=== PATIENT | male | born 1975 | race Caucasian/White ===

== ENCOUNTER 2018-01-13 07:35 | Emergency (ER) | payer SELFPAY ==
[2018-01-13] MEDS ORDERED: TRAMADOL HCL 50 MG TAB ONE (08:03)
[2018-01-13] MEDS ORDERED: LISINOPRIL 20 MG TAB ONE (08:03)
[2018-01-13 08:39] LABS: MPV 8.9 fL (7.6-11.3)
[2018-01-13 08:53] LABS: Albumin 3.7 g/dL (3.4-5.0); Bilirubin Total 0.3 mg/dL (0.2-1.0); Potassium 3.6 mmol/L (3.5-5.1); Protein, Total 7.3 g/dL (6.4-8.2)
[2018-01-13] MEDS ORDERED: cloNIDine HCl 0.1 MG TAB ONE (09:07)
--- NOTE | 2018-01-13 09:40 | EDPHYS ---
Physician Documentation [facility] Name: Herberth Cole Jr Age: 42 yrs Sex: Male : 1975 Arrival Date: 01/13/2018 Time: 07:39 Bed 7 Private MD: None, None ED Physician Larry King HPI: 01/13 07:42 This 42 yrs old Male presents to ER via Unassigned with complaints of kav Headache. 07:53 The patient complains of pain to the top of head and forehead. The patient describes kav the headache as aching, a pressure. Onset: The symptoms/episode began/occurred acutely, just prior to arrival. Associated signs and symptoms: Pertinent positives: sinus congestion. Severity of symptoms: At its worst the pain was moderate, this morning, "similar to past headaches", a " 5" out of "10". Headache History: The patient has had previous headaches and this one is similar to previous episodes. The patient has experienced similar episodes in the past, several times. The patient has not recently seen a physician. patient c/o headache, cough, congestion and blurred vision. 08:00 He reports that he "...used to take blood pressure medications but quit taking it kav because it wasn't working". BP 200/120 on arrival. 08:00 1 ppd smoker and also uses smokeless tobacco daily. kav Historical: - Allergies: 08:04 No Known Allergies; iw - Home Meds: 08:04 None [Active]; iw - PMHx: 08:04 Hypertension; iw - PSHx: 08:04 None; iw - Immunization history:: Adult Immunizations not up to date. - Social history:: Smoking status: Patient uses tobacco products, smokes one pack cigarettes per day. - Family history:: not pertinent. - Ebola Screening: : Patient negative for fever greater than or equal to 101.5 degrees Fahrenheit, and additional compatible Ebola Virus Disease symptoms Patient denies exposure to infectious person Patient denies travel to an Ebola-affected area in the 21 days before illness onset No symptoms or risks identified at this time. - Hospitalizations: : No recent hospitalization is reported. ROS: 08:00 Constitutional: Negative for fever, chills, and weight loss, Eyes: Negative for injury, kav pain, redness, and discharge, Neck: Negative for injury, pain, and swelling, Cardiovascular: Negative for chest pain, palpitations, and edema, Respiratory: Negative for shortness of breath, cough, wheezing, and pleuritic chest pain, Abdomen/GI: Negative for abdominal pain, nausea, vomiting, diarrhea, and constipation, Back: Negative for injury and pain, : Negative for injury, bleeding, discharge, and swelling, MS/Extremity: Negative for injury and deformity, Skin: Negative for injury, rash, and discoloration, Psych: Negative for depression, anxiety, suicide ideation, homicidal ideation, and hallucinations, Allergy/Immunology: Negative for hives, rash, and allergies, Endocrine: Negative for neck swelling, polydipsia, polyuria, polyphagia, and marked weight changes, Hematologic/Lymphatic: Negative for swollen nodes, abnormal bleeding, and unusual bruising. 08:00 ENT: Positive for nasal discharge, sinus congestion. 08:00 Neuro: Positive for headache, visual changes, patient reports blurred vision. Exam: 08:00 Constitutional: This is a well developed, well nourished patient who is awake, alert, kav and in no acute distress. Head/Face: Normocephalic, atraumatic. Eyes: Pupils equal round and reactive to light, extra-ocular motions intact. Lids and lashes normal. Conjunctiva and sclera are non-icteric and not injected. Cornea within normal limits. Periorbital areas with no swelling, redness, or edema. Neck: Trachea midline, no thyromegaly or masses palpated, and no cervical lymphadenopathy. Supple, full range of motion without nuchal rigidity, or vertebral point tenderness. No Meningismus. Chest/axilla: Normal chest wall appearance and motion. Nontender with no deformity. No lesions are appreciated. Cardiovascular: Regular rate and rhythm with a normal S1 and S2. No gallops, murmurs, or rubs. Normal PMI, no JVD. No pulse deficits. Respiratory: Lungs have equal breath sounds bilaterally, clear to auscultation and percussion. No rales, rhonchi or wheezes noted. No increased work of breathing, no retractions or nasal flaring. Abdomen/GI: Soft, non-tender, with normal bowel sounds. No distension or tympany. No guarding or rebound. No evidence of tenderness throughout. Back: No spinal tenderness. No costovertebral tenderness. Full range of motion. Skin: Warm, dry with normal turgor. Normal color with no rashes, no lesions, and no evidence of cellulitis. MS/ Extremity: Pulses equal, no cyanosis. Neurovascular intact. Full, normal range of motion. Psych: Awake, alert, with orientation to person, place and time. Behavior, mood, and affect are within normal limits. 08:00 ENT: External ear(s): are unremarkable, no acute changes, Ear canal(s): are normal, no acute changes, TM's: are normal, no acute changes, Nose: Turbinates: are swollen bilaterally, Posterior pharynx: is normal, no acute changes. Vital Signs: 08:02 BP 182 / 111; Pulse 99; Resp 18 S; Temp 98.3(TE); Pulse Ox 99% on R/A; Weight 131.54 iw kg; Height 5 ft. 9 in. (175.26 cm); Pain 6/10; 08:40 BP 197 / 108; Pulse 93; Resp 18; Pulse Ox 97% on R/A; Pain 4/10; dh3 09:28 BP 185 / 90; Pulse 88; Resp 16; Pulse Ox 94% ; Pain 2/10; jl7 08:02 Body Mass Index 42.83 (131.54 kg, 175.26 cm) iw Visual Acuity: 08:06 Left Eye Visual acuity 20/25, ; Right Eye Visual acuity 20/25, ; Both Eyes Visual jl7 acuity 20/25; Without Lenses; MDM: 07:42 Medical screening is not applicable. kav 08:00 Data reviewed: vital signs, nurses notes. kav 08:45 Differential diagnosis: hypertensive headache, migraine, sinusitis. ED course: bp kav 197/108. 01/13 07:52 Order name: CBC w/o diff; Complete Time: 08:59 kav 01/13 07:52 Order name: CMP; Complete Time: 08:59 kav 01/13 07:52 Order name: Visual Acuity; Complete Time: 08:06 kav Administered Medications: 07:58 Drug: Lisinopril 20 mg Route: PO; 09:00 Follow up: Response: No adverse reaction; Blood pressure is unchanged 07:58 Drug: traMADol 50 mg Route: PO; jl7 09:00 Follow up: Response: No adverse reaction; Pain is decreased jl7 09:03 Drug: cloNIDine 0.1 mg Route: PO; 09:28 Follow up: Response: No adverse reaction; Blood pressure is lowered Disposition: 11:05 Co-signature as Attending Physician, Larry King MD. rn Disposition: 01/13/18 09:39 Discharged to Home. Impression: Essential (primary) hypertension, Headache, Acute frontal sinusitis. - Condition is Stable. - Discharge Instructions: Sinus Headache, Hypertension, [id number], How to Take Your Blood Pressure, Epsi-[id number], DASH Eating Plan, Managing Your Hypertension. - Prescriptions for Zithromax Z- Declan 250 mg Oral Tablet - take 1 tablet by ORAL route as directed for 5 days Day 1 - take two (2) tablets one time. Day 2, 3, 4 , 5 take one (1) tablet once daily.; 6 tablet. Medrol (Declan) 4 mg Oral Tablets, Dose Pack - take 1 tablet by ORAL route as directed - follow package instructions; 1 packet. Lisinopril- Hydrochlorothiazide 20-12.5 mg Oral Tablet - take 1 tablet by ORAL route once daily; 20 tablet. - Medication Reconciliation Form, Thank You Letter, Antibiotic Education, Prescription Opioid Use form. - Follow up: Private Physician; When: 5 - 6 days; Reason: Recheck today's complaints, Continuance of care, Re-evaluation by your physician. - Problem is new. - Symptoms have improved. - Notes: follow up with family medicine for post-ED evaluation and treatment abstain from smoking and using oral tobacco over the counter tylenol for headache take your blood pressure medication as directed Signatures: Dispatcher [employer] EDLatisha Dillard, MILK PASTEURIZER MILK PASTEURIZER Clary Coronado RN RN iw Nieto, Roman, MD MD rn Leal, Jahala, RN RN jl7 Corrections: (The following items were deleted from the chart) 10:01 09:39 01/13/2018 09:39 Discharged to Home. Impression: Essential (primary) jl7 hypertension; Headache; Acute frontal sinusitis. Condition is Stable. Discharge Instructions: Sinus Headache, Hypertension, [id number]-cj-[id number], How to Take Your Blood Pressure, Nucu-pi-Yeul, DASH Eating Plan, Managing Your Hypertension. Prescriptions for Zithromax Z-Declan 250 mg Oral Tablet - take 1 tablet by ORAL route as directed for 5 days Day 1 - take two (2) tablets one time. Day 2, 3, 4 , 5 take one (1) tablet once daily.; 6 tablet, Medrol (Declan) 4 mg Oral Tablets, Dose Pack - take 1 tablet by ORAL route as directed - follow package instructions; 1 packet. and Forms are Medication Reconciliation Form, Thank You Letter, Antibiotic Education, Prescription Opioid Use. Follow up: Private Physician; When: 5 - 6 days; Reason: Recheck today's complaints, Continuance of care, Re-evaluation by your physician. Problem is new. Symptoms have improved. kav
--- NOTE | 2018-01-13 09:40 | ER ---
Nurse's Notes [facility] Name: Herberth Cole Jr Age: 42 yrs Sex: Male : 1975 Arrival Date: 01/13/2018 Time: 07:39 Bed 7 Private MD: None, None Diagnosis: Essential (primary) hypertension;Headache;Acute frontal sinusitis Presentation: 01/13 07:52 Presenting complaint: Patient states: headache to top of head since yesterday, this iw morning had a forceful cough and his vision went blurry for a minute, vision has returned to normal now, also has had nasal congestion. Transition of care: patient was not received from another setting of care. Onset of symptoms was January 13, 2018. Risk Assessment: Do you want to hurt yourself or someone else? Patient reports no desire to harm self or others. Initial Sepsis Screen: Does the patient meet any 2 criteria? No. Patient's initial sepsis screen is negative. Does the patient have a suspected source of infection? No. Patient's initial sepsis screen is negative. Care prior to arrival: None. 07:52 Method Of Arrival: Ambulatory 07:52 Acuity: CHERYL 3 Triage Assessment: 08:02 Headache History: The patient has had previous headaches and this one is similar to iw previous episodes, and this one is more severe than previous episodes. General: Appears in no apparent distress. Historical: - Allergies: 08:04 No Known Allergies; iw - Home Meds: 08:04 None [Active]; iw - PMHx: 08:04 Hypertension; iw - PSHx: 08:04 None; iw - Immunization history:: Adult Immunizations not up to date. - Social history:: Smoking status: Patient uses tobacco products, smokes one pack cigarettes per day. - Family history:: not pertinent. - Ebola Screening: : Patient negative for fever greater than or equal to 101.5 degrees Fahrenheit, and additional compatible Ebola Virus Disease symptoms Patient denies exposure to infectious person Patient denies travel to an Ebola-affected area in the 21 days before illness onset No symptoms or risks identified at this time. - Hospitalizations: : No recent hospitalization is reported. Screenin:06 Abuse screen: Denies threats or abuse. Denies injuries from another. Nutritional jl7 screening: No deficits noted. Tuberculosis screening: No symptoms or risk factors identified. Fall Risk None identified. Assessment: 08:07 General: Appears in no apparent distress. uncomfortable, Behavior is calm, cooperative, jl7 appropriate for age. Pain: Complains of pain in forehead and top of head Pain does not radiate. Pain currently is 6 out of 10 on a pain scale. Quality of pain is described as pressure. Neuro: Level of Consciousness is awake, alert, obeys commands, Oriented to person, place, time, situation, Asphalt Patcher are equal bilaterally Moves all extremities. Full function Gait is steady, Speech is normal, Facial symmetry appears normal. Cardiovascular: Heart tones S1 S2 present Patient's skin is warm and dry. Respiratory: Airway is patent Respiratory effort is even, unlabored, Respiratory pattern is regular, symmetrical, Breath sounds are clear bilaterally. GI: No signs and/or symptoms were reported involving the gastrointestinal system. Patient currently denies diarrhea, nausea, vomiting. : No signs and/or symptoms were reported regarding the genitourinary system. EENT: No signs and/or symptoms were reported regarding the EENT system. Derm: Skin is pink, warm \T\ dry. 09:00 Reassessment: Patient appears in no apparent distress at this time. Patient and/or jl7 family updated on plan of care and expected duration. Pain level reassessed. Patient is alert, oriented x 3, equal unlabored respirations, skin warm/dry/pink. Patient states feeling better. Vital Signs: 08:02 BP 182 / 111; Pulse 99; Resp 18 S; Temp 98.3(TE); Pulse Ox 99% on R/A; Weight 131.54 iw kg; Height 5 ft. 9 in. (175.26 cm); Pain 6/10; 08:40 BP 197 / 108; Pulse 93; Resp 18; Pulse Ox 97% on R/A; Pain 4/10; dh3 09:28 BP 185 / 90; Pulse 88; Resp 16; Pulse Ox 94% ; Pain 2/10; jl7 08:02 Body Mass Index 42.83 (131.54 kg, 175.26 cm) iw Visual Acuity: 08:06 Left Eye Visual acuity 20/25, ; Right Eye Visual acuity 20/25, ; Both Eyes Visual jl7 acuity 20/25; Without Lenses; ED Course: 07:39 Patient arrived in ED. mr 07:40 None, None is Private Physician. mr 07:42 Latisha Brewster FNP is [facility]. kav 07:42 Larry King MD is Attending Physician. kav 07:53 Moira Howard, RN is Primary Nurse. jl7 08:02 Triage completed. iw 08:02 Arm band placed on. iw 08:06 Patient has correct armband on for positive identification. Bed in low position. Call jl7 light in reach. Side rails up X 1. Pulse ox on. NIBP on. 08:06 No provider procedures requiring assistance completed. jl7 08:22 Initial lab(s) drawn, by ms, sent to lab. Inserted saline lock: 20 gauge in right dh3 antecubital area, using aseptic technique. Blood collected. :59 IV discontinued, intact, bleeding controlled, No redness/swelling at site. Pressure jl7 dressing applied. Administered Medications: 07:58 Drug: Lisinopril 20 mg Route: PO; jl 09:00 Follow up: Response: No adverse reaction; Blood pressure is unchanged 07:58 Drug: traMADol 50 mg Route: PO; jl 09:00 Follow up: Response: No adverse reaction; Pain is decreased 09:03 Drug: cloNIDine 0.1 mg Route: PO; jl7 09:28 Follow up: Response: No adverse reaction; Blood pressure is lowered jl Outcome: 09:39 Discharge ordered by . 09:59 Discharged to home ambulatory. 09:59 Condition: stable 09:59 Discharge instructions given to patient, Instructed on discharge instructions, follow up and referral plans. medication usage, Demonstrated understanding of instructions, follow-up care, medications, Prescriptions given X 3. 10:01 Patient left the ED. jl7 Signatures: Latisha Brewster FNP CRACKING STILL OPERATORSteven espinosa Shruthi XiongClary, RN RN iw Moira Howard, RN RN [facility] Maryam Larsen 3 Corrections: (The following items were deleted from the chart) 08:02 07:52 Acuity: CHERYL 4 08:42 08:40 BP 197 / 108; Pulse 93bpm; Resp 18bpm; Pulse Ox 97% RA; dh3 dh3
[2018-01-13 10:21] VITALS: TEMP 98.3
[2018-01-13 10:24] VITALS: BP 185/90; O2SAT 94
== END 2018-01-13 10:01 | disposition home or self-care (01) ==
LOC: ER 07:35
DX: J01.10 Acute frontal sinusitis, unspecified (principal); I10 Essential (primary) hypertension; F17.210 Nicotine dependence, cigarettes, uncomplicated
CPT/HCPCS: 36415; 80053; 85027; 99284